=== PATIENT | female | born 1990 | race Caucasian/White ===

== ENCOUNTER 2020-03-12 15:24 | Emergency (ER) | payer OTHER ==
[~2020-03-12] VITALS: Ht 157.5 cm; Wt 47.2 kg
--- NOTE | 2020-03-12 16:05 | NUR ---
LEFT FLANK PAIN SINCE LAST NIGHT, COMPLETED A COURSE OF BACTRIM FOR UTI 5 DAYS AGO. PATIENT A/OX4, BREATHING EVEN AND UNLABORED, NO SOB NOTED, NEEDS ATTENDED, ASSISTED TO RESTROOM FOR A URINE SAMPLE.
[2020-03-12] MEDS ORDERED: ONDANSETRON HCL/PF 4 MG/2 ML VIAL ONE (16:59)
[2020-03-12] MEDS ORDERED: KETOROLAC TROMETHAMINE 15 MG/ML VIAL ONE (16:59)
[2020-03-12 17:07] LABS: APPEARANCE,URINE Clear (CLEAR); BILIRUBIN,URINE Negative (NEGATIVE); BLOOD, URINE Negative Ery/uL (NEGATIVE); COLOR,URINE Yellow (YELLOW); KETONES,URINE 15 (NEGATIVE); LEUKOCYTE ESTERASE ,URINE Negative (NEGATIVE); NITRITE, URINE Negative (NEGATIVE); PROTEIN,URINE Negative (NEGATIVE); UGLUCOSE Negative (NEGATIVE)
[2020-03-12 17:14] LABS: BASOPHILS # (AUTO) 0.1 /CMM (0.0-0.2); BASOPHILS % (AUTO) 1.1 % (0.0-2.0); EOSINOPHILS % (AUTO) 0.7 % (0.0-6.0); HEMATOCRIT 42 % (33-45); LYMPHOCYTES # (AUTO) 1.2 /CMM (0.8-4.8); LYMPHOCYTES % (AUTO) 22.2 % (20.0-44.0); MEAN CORPUSCULAR HGB CONC 33 g/dl (31.0-36.0); MEAN CORPUSCULAR VOLUME 96 fL (82-100); MONOCYTES # (AUTO) 0.6 /CMM (0.1-1.30); MONOCYTES % (AUTO) 11.7 % (2.0-12.0); NEUTROPHILS # (AUTO) 3.5 /CMM (1.8-8.9); NEUTROPHILS % (AUTO) 64.3 % (43.0-81.0); PLATELET COUNT (AUTO) 195 /CMM (150-450); RED BLOOD CELL COUNT(AUTO) 4.42 MIL/uL (4.0-5.2); WHITE BLOOD COUNT (AUTO) 5.5 K/uL (4.3-11.0)
[2020-03-12] MEDS: IV NS 0.9% 1,000 ML BAG IV ONE (17:18)
[2020-03-12] MEDS: KETOROLAC TROMETHAMINE INJ 30 MG/ML VIAL IV ONE (17:18)
[2020-03-12] MEDS: ONDANSETRON HCL/PF 4 MG/2 ML VIAL IVP ONE (17:18)
[2020-03-12 17:25] LABS: PH,URINE >9.0 (5.0-8.0)
[2020-03-12 17:28] LABS: CALCIUM, SERUM 8.7 mg/dL (8.5-10.1); CREATININE 0.8 mg/dL (0.6-1.3); POTASSIUM 3.9 mmol/L (3.5-5.1)
[2020-03-12 17:35] LABS: ALBUMIN 4.1 g/dL (3.4-5.0); BILIRUBIN,DIRECT 0.2 mg/dL (0.0-0.2); BILIRUBIN,TOTAL 0.9 mg/dL (0.2-1.0); TOTAL PROTEIN, SERUM 7.4 g/dL (6.4-8.2)
--- NOTE | 2020-03-12 18:39 | NUR ---
PATIENT RESTING, NO DISTRESS NOTED, PAIN HAS IMPROVED.
--- NOTE | 2020-03-12 19:13 | NUR ---
patient a/ox4, ambulatory with steady gait. No distress noted, pain improved. IV removed. Catheter intact and site benign. Pressure and 4x4 applied to site. No bleeding noted.Patient discharged to home in stable condition. Written and verbal after care instructions given. Patient verbalizes understanding of instruction.
[2020-03-12 19:14] VITALS: BP 99/63
== END 2020-03-12 19:15 | disposition home or self-care (01) ==
LOC: ER 15:37
DX: K59.00 Constipation, unspecified (principal); N39.0 Urinary tract infection, site not specified; N20.0 Calculus of kidney
CPT/HCPCS: 36415; 76770; 80048; 80076; 81001; 83690; 84703; 85025; 87086; 96361; 96374; 96375; 99284; J1885; J2405; J7030; 81000-TC